=== PATIENT | male | born 1945 | race Hispanic/Latino ===

== ENCOUNTER 2016-10-11 10:46 | Day surgery (SDC) | payer MEDICARE, MEDICAID ==
[~2016-10-11 10:46] MED LIST: OMEP20CA11 PO; PSYL1PAC10 PO; fentaNYL-PF 50 mCg/mL 2 mL Inj IVPUSH PRN
[2016-10-11] MEDS ORDERED: 0.9% Sodium Chloride 1,000 ML ONE (11:16)
[2016-10-11 11:24] VITALS: BP 135/89; PULSE 49; RESP 17; O2SAT 98
[2016-10-11] MEDS ORDERED: ASPI325T32 PO (11:24)
[2016-10-11] MEDS ORDERED: 0.9% Sodium Chloride 1,000 ML IV ONE (12:08)
[2016-10-11 12:16] VITALS: BP 117/69; PULSE 54; RESP 15; O2SAT 92
[2016-10-11 12:26] VITALS: BP 107/73; PULSE 52; RESP 15; O2SAT 93
[2016-10-11 12:36] VITALS: BP 107/72; PULSE 49; RESP 15; O2SAT 93
--- NOTE | 2016-10-11 14:00 | ENDO ---
[address] [address] ENDOSCOPY PROCEDURE PATIENT: PAULINO PETERS : 1945 MR#: [id number] ADMIT: 10/11/2016 JOB ID: [id number] TYPE OF OPERATION: Esophagogastroduodenoscopy, biopsy. PREOPERATIVE DIAGNOSIS: Bloating. POSTOPERATIVE DIAGNOSIS: Normal upper endoscopy. ANESTHESIA: Fentanyl 100 mcg, Versed 5 mg IV administered. COMPLICATIONS: None. BLOOD LOSS: Minimal. DESCRIPTION OF PROCEDURE: After risks and benefits explained to the patient informed consent was obtained. After anesthesia administered, upper endoscope was inserted in mouth intubating the esophagus, stomach, second portion of duodenum. Mucosa carefully examined. After procedure was done, the scope was withdrawn and the procedure terminated. FINDINGS: Upon inspection of the esophagus, esophagus was normal without masses, ulcers, lesions. Z-line located 40 cm from incisors. Upon entering stomach, the stomach was also normal without masses, ulcers, or lesions. Retroflexion was normal. Duodenal bulb, first and second portion were normal. Biopsies taken, antrum and body of the stomach and duodenum. IMPRESSION: Normal upper endoscopy, status post biopsy. RECOMMENDATION: Await pathology results. Follow up with GI clinic as needed.
[2016-10-12] MEDS ORDERED: Sodium Chloride LOK Flush 10 mL Syringe IV PRN (06:00)
[2016-10-12] MEDS ORDERED: 0.9% Sodium Chloride 1,000 ML IV SCH (06:00)
--- NOTE | 2016-10-14 17:18 | PATH ---
SURGICAL PATHOLOGY Attending Physician:Checo Garibay MD CASE STATUS: Signed Out PATIENT NAME: KARTHIK PETERS PID: [id number] : 1945 DATE COLLECTED:10/11/2016 20:56 SPECIMEN: 1: Duodenum, Biopsy 2: Stomach, Antrum, Biopsy 3: Gastric, Biopsy CLINICAL HISTORY: 1). DUODENAL 2). ANTRUM 3). GASTRIC BODY FINAL DIAGNOSIS: 1.DUODENUM, BIOPSIES: DUODENAL MUCOSA WITH NO DIAGNOSTIC ABNORMALITY. Negative for active inflammation, features of sprue, dysplasia, and malignancy. 2.STOMACH, ANTRUM, BIOPSY: ANTRAL MUCOSA WITH NO DIAGNOSTIC ABNORMALITY. Negative for Helicobacter organisms. Negative for intestinal metaplasia. Negative for dysplasia and malignancy. 3.STOMACH, BODY, BIOPSY: BODY-TYPE MUCOSA WITH NO DIAGNOSTIC ABNORMALITY. Negative for Helicobacter organisms. Negative for intestinal metaplasia. Negative for dysplasia and malignancy. ICD10 CODE R10.9 GROSS DESCRIPTION: Received are three formalin-filled containers, each labeled with the patient' s name. 1. Received in formalin, labeled with the patient' s name and "duodenal BX", are two fragments of florentino, soft tissue ranging in size from less than 0.1 cm by less than 0.1 cm by 0.1 cm to 0.2 x 0.1 x 0.1 cm. All fragments are totally submitted in cassette 1A. 2. Received in formalin, labeled with the patient' s name and "antrum BX", is one fragment of florentino, soft tissue measuring 0.4 x 0.2 x 0.1 cm. The fragment is totally submitted in cassette 2A. 3. Received in formalin, labeled with the patient' s name and "gastric body BX", are two fragments of florentino, soft tissue ranging in size from 0.1 x 0.1 x 0.1 cm to 0.2 x 0.1 x 0.1 cm. All fragments are totally submitted in cassette 3A. ([id number]) MICRO DESCRIPTION: See diagnosis. ICD-9 CODES: CPT CODES: 1: 94327 2: 81268 3: 40985 Electronically Signed Out Alejandra Martínez MD [facility] [address] [place] [address], [place] [address] Technical component performed at [facility], [address], [place], [address]
== END 2016-10-11 23:59 | disposition home or self-care (01) ==
LOC: END 10:46
PROVIDERS: ATTEND Internal Medicine Gastroenterology
DX: R14.0 Abdominal distension (gaseous) (principal); K59.00 Constipation, unspecified; E78.00 Pure hypercholesterolemia, unspecified; Z86.010 Personal history of colon polyps
CPT/HCPCS: 43239; 88305; G0500; J2250; J3010; J7030